=== PATIENT | female | born 2000 | race Caucasian/White ===

== ENCOUNTER 2019-02-11 01:33 | Inpatient (IN) ==
[2019-02-11] MEDS ORDERED: D5 1/2 NS 1000 ML 1,000 ML IV SCH ×2 (01:52→03:00)
[2019-02-11] MEDS ORDERED: D5 1/2 NS 1000 ML 1,000 ML ONE (01:52)
[2019-02-11 01:56] LABS: AMNISURE ROM TEST THERE IS A RUPTURE (NO RUPTURE)
[2019-02-11 02:10] VITALS: BMI 46.3
[2019-02-11] MEDS ORDERED: ANCEF VIAL 1 GRAM IVP ONE (02:40)
[2019-02-11] MEDS ORDERED: DILAUDID INJ ONE (02:57)
[2019-02-11] MEDS ORDERED: ANCEF 1 GRAM IV PREMIX* 1 G/50 ML BAG IV ONE (03:06)
[2019-02-11] MEDS ORDERED: DILAUDID INJ IVP PRN (03:07)
[2019-02-11] MEDS ORDERED: ZOFRAN INJ 4 MG VIAL IVP PRN ×2 (03:07→05:20)
[2019-02-11] MEDS ORDERED: PHENERGAN INJ 25 MG IM PRN (03:07)
[2019-02-11] MEDS ORDERED: REGLAN INJ 10 MG VIAL IVP PRN ×2 (03:07→05:20)
[2019-02-11] MEDS ORDERED: BENADRYL INJ 50 MG VIAL IVP PRN ×2 (03:07→05:20)
[2019-02-11] MEDS ORDERED: LR 1000 ML IV 1,000 ML ONE (04:04)
[2019-02-11] MEDS ORDERED: D5 1/2 NS 1000 ML 1,000 ML with PITOCIN 20 UNITS IV SCH ×2 (05:20)
[2019-02-11] MEDS ORDERED: ADACEL or BOOSTRIX TDaP VACCINE IM ONE (05:20)
[2019-02-11] MEDS ORDERED: PERCOCET TAB 5/325 MG PO PRN (05:20)
[2019-02-11] MEDS ORDERED: MYLICON TAB 80 MG CHEW PO PRN (05:20)
[2019-02-11] MEDS ORDERED: NARCAN INJ IVP PRN (05:20)
[2019-02-11 05:35] LABS: ALANINE AMINOTRANSFERASE 14 Units/L (12-78); ALBUMIN 2.2 g/dL (3.4-5.0); ALKALINE PHOSPHATASE 121 Units/L (46-116); ASPARTATE AMINO TRANSFERASE 11 Units/L (15-37); BLOOD UREA NITROGEN 12 mg/dL (7-18); CALCIUM 8.7 mg/dL (8.5-10.1); CHLORIDE 105 mmol/L (98-107); COR CA(FOR HYPOALB) 10.1 mg/dL (8.5-10.1); CREATININE 0.83 mg/dL (0.55-1.02); SODIUM 139 mmol/L (136-145); TOTAL PROTEIN 5.9 g/dL (6.4-8.2); eGFR NON BLACK RACES > 60 (>60)
[2019-02-11] MEDS: ZANTAC PO SCH ×2 (07:59→20:02)
[2019-02-11] MEDS: PRENATAL PLUS PO SCH (07:59)
[2019-02-11] MEDS: TORADOL 30 MG VIAL IVP PRN ×3 (08:10→19:54)
[2019-02-12] MEDS: TORADOL 30 MG VIAL IVP PRN (02:11)
[2019-02-12 05:33] LABS: HEMATOCRIT 28.5 % (36.0-47.0); HEMOGLOBIN 9.6 g/dL (12.0-16.0)
[2019-02-12] MEDS: PERCOCET TAB 5/325 MG PO PRN ×4 (06:37→21:09)
[2019-02-12] MEDS: COLACE CAP 100 MG PO SCH ×2 (07:59→21:09)
[2019-02-12] MEDS: ZANTAC PO SCH ×2 (07:59→21:09)
[2019-02-12] MEDS: PRENATAL PLUS PO SCH (07:59)
[2019-02-12] MEDS: FERROUS GLUCONATE PO SCH ×2 (07:59→16:36)
[2019-02-12] MEDS: MOTRIN TAB 800 MG PO PRN ×2 (10:03→18:18)
[2019-02-12] MEDS: BACTROBAN CREAM TOP SCH ×2 (14:12→21:10)
[2019-02-13] MEDS: PERCOCET TAB 5/325 MG PO PRN ×3 (01:22→10:43)
[2019-02-13] MEDS: MOTRIN TAB 800 MG PO PRN (04:26)
[2019-02-13] MEDS: BACTROBAN CREAM TOP SCH (05:30)
[2019-02-13] MEDS: FERROUS GLUCONATE PO SCH (06:01)
[2019-02-13] MEDS ORDERED: DEPO-PROVERA CONTRACEPTIVE INJ IM ONE ×2 (07:59→10:25)
[2019-02-13] MEDS: COLACE CAP 100 MG PO SCH (10:33)
[2019-02-13] MEDS: ZANTAC PO SCH (10:33)
[2019-02-13] MEDS: PRENATAL PLUS PO SCH (11:48)
[2019-02-13 12:08] VITALS: BP 130/86
== END 2019-02-13 13:20 | disposition home or self-care (01) | DRG 787 ==
LOC: ER 01:36 → LD 02:48 → MED/SURG 05:20
PROVIDERS: ADMIT Specialist; ATTEND Specialist
DX: D50.8 Other iron deficiency anemias; O36.0930 Maternal care for other rhesus isoimmunization, third trimester, not applicable or unspecified; Z3A.37 37 weeks gestation of pregnancy; O99.013 Anemia complicating pregnancy, third trimester; O99.613 Diseases of the digestive system complicating pregnancy, third trimester; Z37.0 Single live birth
CPT/HCPCS: 36415; 80053; 84112; 85014; 85018; 86592; 86850; 86900; 86901; 96365; 96367; 96374; 99284; A4216; A4222; S0197; J0690; J1170; J1200; J1885; J2405; J3490; J7120; S5010

== ENCOUNTER 2025-04-05 10:38 | Inpatient (IN) ==
[2025-04-05] MEDS ORDERED: REGLAN INJ 10 MG VIAL IVP PRN ×2 (11:04→16:59)
[2025-04-05] MEDS: ANCEF VIAL 1 GRAM IVP ONE (11:04)
[2025-04-05] MEDS: PITOCIN IVP ONE (11:04)
[2025-04-05] MEDS ORDERED: ZOFRAN INJ 4 MG VIAL IVP PRN ×3 (11:04→16:59)
[2025-04-05] MEDS ORDERED: NUBAIN INJ 20 MG AMP IVP PRN (11:04)
[2025-04-05] MEDS: LR 1,000 ML IV 1,000 ML IV ONE ×3 (11:14→13:43)
[2025-04-05 11:40] LABS: EOSINOPHILS # (AUTO) 0.2 x10^3/uL (0.0-0.2); EOSINOPHILS % (AUTO) 1.6 % (0.9-2.9); LYMPHOCYTES # (AUTO) 3.2 X10^3/uL (1.3-2.9)
[2025-04-05] MEDS: NOZIN NASAL SANITIZER TP ONE (11:42)
[2025-04-05 11:45] LABS: BASOPHILS # (AUTO) 0.2 X10^3/uL (0.0-0.1); BASOPHILS % (AUTO) 1.2 % (0.2-1.0); LYMPHOCYTES % (AUTO) 23.6 % (21.0-51.0); MEAN CORPUSCULAR HEMOGLOBIN 25.2 pg (27.0-34.0); MEAN CORPUSCULAR HGB CONC 32.4 g/dL (33.0-35.0); MEAN CORPUSCULAR VOLUME 77.9 fL (80.0-100.0); MEAN PLATELET VOLUME 7.5 fL (7.4-11.0); MONOCYTES # (AUTO) 0.9 x10^3/uL (0.3-0.8); NEUTROPHILS % (AUTO) 66.6 % (42.0-75.0); PLATELET COUNT 358 X10^3/uL (150.0-450.0); RED BLOOD COUNT 3.97 X10^6/uL (3.5-5.4); WHITE BLOOD COUNT 13.5 X10^3/uL (3.6-10.0)
[2025-04-05 11:46] LABS: BLOOD UREA NITROGEN 13 mg/dL (7-18); CALCIUM 9.2 mg/dL (8.5-10.1); CARBON DIOXIDE 24.4 mmol/L (21-32); CHLORIDE 103 mmol/L (98-107); CREATININE 0.71 mg/dL (0.55-1.02); GLUCOSE 86 mg/dL (65-99); POTASSIUM 3.8 mmol/L (3.5-5.1); SODIUM 135 mmol/L (136-145); eGFR NON BLACK RACES > 60 (>60)
[2025-04-05 11:57] LABS: BAND NEUTROPHILS % 1 % (0-10)
[2025-04-05 11:58] LABS: ANISOCYTOSIS SLIGHT; HYPOCHROMASIA SLIGHT; MICROCYTOSIS SLIGHT; PLATELET MORPHOLOGY COMMENT NORMAL (NORMAL)
[2025-04-05] MEDS: ZOFRAN INJ 4 MG VIAL ONE ×2 (12:08→12:11)
[2025-04-05] MEDS: REGLAN INJ 10 MG VIAL ONE (12:08)
[2025-04-05] MEDS: PEPCID 20 MG VIAL ONE (12:09)
[2025-04-05] MEDS: PRECEDEX INJ VIAL ONE (12:10)
[2025-04-05] MEDS: XYLOCAINE 1 % (PLAIN) ONE (12:10)
[2025-04-05] MEDS: MARCAINE SPINAL ONE (12:11)
[2025-04-05] MEDS: TORADOL 30 MG VIAL ONE (12:11)
[2025-04-05] MEDS ORDERED: TORADOL 30 MG VIAL ONE (12:30)
[2025-04-05] MEDS ORDERED: REGLAN INJ 10 MG VIAL ONE (12:30)
[2025-04-05] MEDS ORDERED: ZOFRAN INJ 4 MG VIAL ONE (12:30)
[2025-04-05] MEDS ORDERED: PEPCID 20 MG VIAL ONE (12:30)
[2025-04-05] MEDS ORDERED: EPHEDRINE SULFATE INJ ONE (12:30)
[2025-04-05] MEDS: ANCEF VIAL 1 GRAM ONE (13:05)
[2025-04-05] MEDS: NS 100 ML IV 100 ML ONE (13:05)
[2025-04-05] MEDS: OFIRMEV IV 1000 MG VIAL 1,000 MG/100 ML VIAL IV ONE (13:37)
[2025-04-05 13:54] LABS: BILIRUBIN,URINE NEGATIVE (NEGATIVE); BLOOD/HEMOGLOBIN,URINE 1+ (NEGATIVE); GLUCOSE, URINE NEGATIVE (NEGATIVE); KETONES,URINE NEGATIVE (NEGATIVE); LEUKOCYTE ESTERASE ,URINE 1+ (NEGATIVE); NITRITES,URINE POSITIVE (NEGATIVE); PROTEIN,URINE 2+ (NEGATIVE); UROBILINOGEN,URINE NORMAL (NORMAL)
[2025-04-05] MEDS ORDERED: BARHEMSYS INJ IVP PRN (14:07)
[2025-04-05] MEDS ORDERED: DILAUDID INJ IVP PRN (14:07)
[2025-04-05] MEDS ORDERED: BENADRYL INJ 50 MG VIAL IVP PRN ×2 (14:07→16:59)
[2025-04-05 14:10] LABS: APPEARANCE,URINE SLIGHTLY HAZY (CLEAR); COLOR,URINE YELLOW (YELLOW)
[2025-04-05 14:11] LABS: BACTERIA,URINE 1+ /HPF (NEGATIVE); RBC,URINE NONE SEEN /HPF (0-3); SQUAMOUS EPITHELIAL CELL,UR RARE /HPF (NEGATIVE)
[2025-04-05] MEDS: EPHEDRINE SULFATE INJ ONE (14:32)
[2025-04-05] MEDS ORDERED: NARCAN INJ IVP PRN (16:59)
[2025-04-05] MEDS ORDERED: MOTRIN TAB 800 MG PO PRN (16:59)
[2025-04-05] MEDS ORDERED: OFIRMEV IV 1000 MG VIAL 1,000 MG/100 ML VIAL IV PRN (16:59)
[2025-04-05] MEDS ORDERED: HYPERRHO S/D (or RHOGAM) IM PRN (16:59)
[2025-04-05] MEDS ORDERED: MYLICON TAB 80 MG CHEW PO PRN (16:59)
--- NOTE | 2025-04-05 17:09 | OR.IMMED ---
IMMEDIATE POST-OP NOTE Immediate Post-Op Note Pre-Op Diagnosis: Previous section for elective repeat Procedure: Elective repeat section Description of Procedure: Delivery of live with reassuring apgars via Pfannensteil incision. Surgeon/Hotel Custodian: Acacia Xavier MD Findings: Live with reassuring apgars Specimens Removed: Placenta Estimated Blood Loss: 600 cc Complications: None Discharge Progress Notes: Transferred to recovery in stable condition Post Hospital Plans and Medications: Post operative IV Tylenol, with Roxicodone until taking PO, then Ibuprofen and Percocet
[2025-04-05] MEDS: D5 1/2 NS 1,000 ML 1,000 ML with PITOCIN 20 UNITS IV SCH (17:12)
[2025-04-05] MEDS: OXYTOCIN 20 UNIT/1,000 ML-NS 20 UNIT/1,000 ML PLAST..BAG IV SCH (17:12)
[2025-04-05] MEDS: ADACEL or BOOSTRIX TDaP VACCINE IM ONE (17:14)
[2025-04-05] MEDS: TORADOL 30 MG VIAL IVP PRN (19:33)
[2025-04-05] MEDS: LR 1,000 ML IV 1,000 ML IV SCH (21:43)
[2025-04-06] MEDS: ROXICODONE TAB 5 MG PO PRN (00:13)
[2025-04-06 05:07] LABS: HEMATOCRIT 29.7 % (36.0-47.0); HEMOGLOBIN 9.7 g/dL (12.0-16.0)
[2025-04-06] MEDS: PRENATAL PLUS PO SCH (07:57)
--- NOTE | 2025-04-06 11:02 | NOTE.PROBC ---
Progress Note OB-C/S Date Date of Exam: 04/06/25 Subjective Data Subjective: Postoperative day #1 status post section without complaints. Vaginal bleeding seems about normal. She had fundal massage 1 time according to patient and was then asked to massage her own fundus. Has been up to the bathroom after [place] was removed without difficulty. Reports no flatus or bowel movement, but has an appetite. States that due to her pain level she just recently was able to fall asleep. Objective Data 04/06/25 04:37 04/05/25 11:22 Objective Data: Overweight female in no apparent distress. Lungs clear to auscultation bilaterally, heart regular rate and rhythm. Abdomen soft nontender. Fundus at umbilicus. Extremities 2+ edema. Patient was out of bed so sequential compression devices had been removed. Assessment Assessment: Postoperative day #1 status post elective repeat section doing well. Chronic hypertension. Anemia status post surgery. Patient declined bilateral tubal ligation so consider Depo-Provera at discharge for contraception.
[2025-04-06] MEDS: KEFLEX CAP 500 MG PO SCH (12:00)
[2025-04-06] MEDS: NORMODYNE TAB 100 MG PO SCH (13:52)
[2025-04-06] MEDS: PERCOCET TAB 5/325 MG PO PRN (17:21)
[2025-04-06] MEDS: MOTRIN TAB 800 MG PO PRN (19:24)
[2025-04-07] MEDS: HYDROCHLOROTHIAZIDE 12.5 MG CAP PO SCH (08:19)
[2025-04-07] MEDS: PROCARDIA XL 24-HR PO SCH (09:40)
--- NOTE | 2025-04-07 14:55 | NOTE.PROBC ---
Progress Note OB-C/S Date Date of Exam: 04/07/25 Subjective Data Subjective: Patient is without complaints. Thinks her bleeding is normal. No chest complaints, no shortness of breath. Is passing gas but has not had a bowel movement. Took a shower last evening and still has a bandage intact. Will not be ready to go home until tomorrow morning when she will have a car seat available. Objective Data 04/06/25 04:37 04/05/25 11:22 Objective Data: Overweight female in no apparent distress. Lungs clear to auscultation bilaterally, heart regular rate and rhythm. Abdomen soft nontender, fundus near umbilicus. Abdomen is obese. Dressing over incision is dry and intact. In the extremities there is 1-2+ pitting and nonpitting edema. Assessment Assessment: Postoperative day #2 status post elective repeat section. Patient has postoperative anemia and is currently asymptomatic. Plan (1) Delivery by section: Plan: Patient may go home after flatus or bowel movement, and also may stay until tomorrow morning if desired. Prescriptions were discussed. Has been changed to Procardia 30 XL daily with hydrochlorothiazide. She has ibuprofen and Percocet for pain control, and she was treated for urinary tract infection with Keflex. 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
[2025-04-07] MEDS: DEPO-PROVERA CONTRACEPTIVE INJ IM ONE (16:13)
[2025-04-08 07:56] VITALS: BP 146/81; PULSE 101; TEMP 98.6; O2SAT 98
[2025-04-08 08:48] VITALS: RESP 20
[2025-04-08] MEDS: ADACEL or BOOSTRIX TDaP VACCINE IM ONE (12:50)
--- NOTE | 2025-04-11 12:33 | W.DIS.FURT ---
Summary of Discharge Discharge Summary of Date Date of Exam: 04/08/25 Admission Date Date of Admission: 04/05/25 Admission Diagnosis Hospital Course: 24-year-old patient, 2 para 1 who was admitted for elective repeat section due to chronic hypertension at 37 weeks of gestation. Patient's was complicated by insufficient care, treatment for syphilis during this , polysubstance abuse including drug screen positive for amphetamines and THC and using a vape, Chronic hypertension, Body mass index of greater than 40, and previous section. She had an uncomplicated section, and progressed well on day #1 and 2. And day #3 the patient was passing gas, and had her travel arrangements made and had a car seat available. She was discharged to home in self-care with a follow-up scheduled in 1 week for incision check. A prescription was sent to her pharmacy. Vital Signs: Vital Signs (72 hours) 04/05/25 11:08 04/05/25 11:08 04/05/25 11:13 Temperature Pulse Rate 90 87 100 H Pulse Rate [Left] Respiratory Rate Blood Pressure 131/81 Blood Pressure [Left Arm] O2 Sat by Pulse Oximetry 98 98 Oxygen Delivery Method 04/05/25 11:14 04/05/25 11:18 04/05/25 11:23 Temperature 97.3 F L Pulse Rate 90 88 Pulse Rate [Left] Respiratory Rate 18 Blood Pressure 131/84 Blood Pressure [Left Arm] O2 Sat by Pulse Oximetry 97 99 Oxygen Delivery Method 04/05/25 11:23 04/05/25 11:28 04/05/25 11:33 Temperature Pulse Rate 93 H 86 Pulse Rate [Left] Respiratory Rate Blood Pressure Blood Pressure [Left Arm] O2 Sat by Pulse Oximetry 98 99 Oxygen Delivery Method Room Air 04/05/25 11:38 04/05/25 11:38 04/05/25 11:43 Temperature Pulse Rate 81 83 88 Pulse Rate [Left] Respiratory Rate Blood Pressure 133/71 Blood Pressure [Left Arm] O2 Sat by Pulse Oximetry 98 98 Oxygen Delivery Method 04/05/25 11:48 04/05/25 11:53 04/05/25 11:58 Temperature Pulse Rate 85 84 86 Pulse Rate [Left] Respiratory Rate Blood Pressure 137/69 Blood Pressure [Left Arm] O2 Sat by Pulse Oximetry 99 98 97 Oxygen Delivery Method 04/05/25 12:03 04/05/25 12:08 04/05/25 12:08 Temperature Pulse Rate 83 85 81 Pulse Rate [Left] Respiratory Rate Blood Pressure 123/65 Blood Pressure [Left Arm] O2 Sat by Pulse Oximetry 98 98 Oxygen Delivery Method 04/05/25 12:13 04/05/25 12:18 04/05/25 12:23 Temperature Pulse Rate 80 81 88 Pulse Rate [Left] Respiratory Rate Blood Pressure Blood Pressure [Left Arm] O2 Sat by Pulse Oximetry 98 99 98 Oxygen Delivery Method 04/05/25 12:24 04/05/25 12:28 04/05/25 12:33 Temperature Pulse Rate 82 74 88 Pulse Rate [Left] Respiratory Rate Blood Pressure 97/54 Blood Pressure [Left Arm] O2 Sat by Pulse Oximetry 97 99 Oxygen Delivery Method 04/05/25 12:38 04/05/25 12:38 04/05/25 12:43 Temperature Pulse Rate 74 73 76 Pulse Rate [Left] Respiratory Rate Blood Pressure 100/56 Blood Pressure [Left Arm] O2 Sat by Pulse Oximetry 98 98 Oxygen Delivery Method 04/05/25 12:48 04/05/25 12:53 04/05/25 12:58 Temperature Pulse Rate 80 84 82 Pulse Rate [Left] Respiratory Rate Blood Pressure 103/56 Blood Pressure [Left Arm] O2 Sat by Pulse Oximetry 98 99 99 Oxygen Delivery Method 04/05/25 14:48 04/05/25 14:53 04/05/25 14:58 Temperature 97 F L Pulse Rate 68 67 73 Pulse Rate [Left] Respiratory Rate 18 18 18 Blood Pressure 142/61 128/56 124/57 Blood Pressure [Left Arm] O2 Sat by Pulse Oximetry 100 100 100 Oxygen Delivery Method Room Air Room Air Room Air 04/05/25 15:03 04/05/25 15:08 04/05/25 15:13 Temperature 97 F L Pulse Rate 63 63 61 Pulse Rate [Left] Respiratory Rate 18 18 18 Blood Pressure 124/56 127/60 119/57 Blood Pressure [Left Arm] O2 Sat by Pulse Oximetry 99 99 98 Oxygen Delivery Method Room Air Room Air Room Air 04/05/25 15:15 04/05/25 15:18 04/05/25 15:30 Temperature 97 F L 97.6 F Pulse Rate 62 Pulse Rate [Left] 64 Respiratory Rate 18 20 Blood Pressure 117/56 Blood Pressure [Left Arm] 115/65 O2 Sat by Pulse Oximetry 99 100 Oxygen Delivery Method Room Air Room Air Room Air 04/05/25 15:45 04/05/25 16:00 04/05/25 16:15 Temperature 97.4 F L 97.2 F L 97.2 F L Pulse Rate Pulse Rate [Left] 86 69 75 Respiratory Rate 18 18 18 Blood Pressure Blood Pressure [Left Arm] 109/58 139/64 120/64 O2 Sat by Pulse Oximetry 100 100 99 Oxygen Delivery Method Room Air Room Air Room Air 04/05/25 16:30 04/05/25 17:30 04/05/25 18:28 Temperature 97.1 F L 98.2 F 98.1 F Pulse Rate 79 Pulse Rate [Left] 83 87 Respiratory Rate 18 18 18 Blood Pressure 111/56 Blood Pressure [Left Arm] 123/61 123/69 O2 Sat by Pulse Oximetry 97 99 99 Oxygen Delivery Method Room Air Room Air 04/05/25 19:00 04/05/25 19:30 04/05/25 19:33 Temperature 97.5 F L Pulse Rate 82 Pulse Rate [Left] Respiratory Rate 18 18 Blood Pressure 157/89 Blood Pressure [Left Arm] O2 Sat by Pulse Oximetry Oxygen Delivery Method Room Air 04/05/25 20:03 04/05/25 20:30 04/06/25 00:00 Temperature 98 F 98.1 F Pulse Rate 86 Pulse Rate [Left] 83 Respiratory Rate 19 20 16 Blood Pressure 138/59 Blood Pressure [Left Arm] 142/86 O2 Sat by Pulse Oximetry 98 Oxygen Delivery Method Room Air 04/06/25 00:13 04/06/25 01:13 04/06/25 04:00 Temperature 97.9 F Pulse Rate Pulse Rate [Left] 84 Respiratory Rate 20 20 16 Blood Pressure Blood Pressure [Left Arm] 136/79 O2 Sat by Pulse Oximetry 98 Oxygen Delivery Method Room Air 04/06/25 04:46 04/06/25 05:16 04/06/25 07:00 Temperature Pulse Rate Pulse Rate [Left] Respiratory Rate 20 18 Blood Pressure Blood Pressure [Left Arm] O2 Sat by Pulse Oximetry Oxygen Delivery Method Room Air 04/06/25 07:56 04/06/25 08:00 04/06/25 08:56 Temperature 97.9 F Pulse Rate Pulse Rate [Left] 90 Respiratory Rate 18 19 18 Blood Pressure Blood Pressure [Left Arm] 135/92 O2 Sat by Pulse Oximetry 99 Oxygen Delivery Method Room Air 04/06/25 11:59 04/06/25 12:00 04/06/25 12:29 Temperature 97.9 F Pulse Rate Pulse Rate [Left] 102 H Respiratory Rate 19 19 18 Blood Pressure Blood Pressure [Left Arm] 141/106 O2 Sat by Pulse Oximetry 99 Oxygen Delivery Method Room Air 04/06/25 16:00 04/06/25 17:21 04/06/25 18:21 Temperature 98.6 F Pulse Rate Pulse Rate [Left] 92 H Respiratory Rate 19 19 18 Blood Pressure Blood Pressure [Left Arm] 147/82 O2 Sat by Pulse Oximetry 99 Oxygen Delivery Method Room Air 04/06/25 19:00 04/06/25 19:24 04/06/25 20:00 Temperature 98.3 F Pulse Rate Pulse Rate [Left] 88 Respiratory Rate 18 18 Blood Pressure Blood Pressure [Left Arm] 130/76 O2 Sat by Pulse Oximetry 99 Oxygen Delivery Method Room Air Room Air 04/06/25 20:24 04/06/25 21:30 04/06/25 22:30 Temperature Pulse Rate Pulse Rate [Left] Respiratory Rate 19 18 17 Blood Pressure Blood Pressure [Left Arm] O2 Sat by Pulse Oximetry Oxygen Delivery Method 04/07/25 00:00 04/07/25 04:00 04/07/25 04:02 Temperature 98.1 F 98.2 F Pulse Rate Pulse Rate [Left] 78 81 Respiratory Rate 18 20 19 Blood Pressure Blood Pressure [Left Arm] 125/68 154/81 O2 Sat by Pulse Oximetry 100 98 Oxygen Delivery Method Room Air Room Air 04/07/25 05:02 04/07/25 07:00 04/07/25 08:00 Temperature 98.1 F Pulse Rate Pulse Rate [Left] 77 Respiratory Rate 16 19 Blood Pressure Blood Pressure [Left Arm] 160/92 O2 Sat by Pulse Oximetry 98 Oxygen Delivery Method Room Air Room Air 04/07/25 08:18 04/07/25 09:18 04/07/25 12:00 Temperature 97.7 F Pulse Rate Pulse Rate [Left] 84 Respiratory Rate 16 19 18 Blood Pressure Blood Pressure [Left Arm] 154/79 O2 Sat by Pulse Oximetry 98 Oxygen Delivery Method Room Air 04/07/25 13:29 04/07/25 14:29 04/07/25 16:00 Temperature 98.2 F Pulse Rate Pulse Rate [Left] 95 H Respiratory Rate 16 18 18 Blood Pressure Blood Pressure [Left Arm] 143/85 O2 Sat by Pulse Oximetry 96 Oxygen Delivery Method Room Air 04/07/25 17:14 04/07/25 18:14 04/07/25 19:00 Temperature Pulse Rate Pulse Rate [Left] Respiratory Rate 16 18 Blood Pressure Blood Pressure [Left Arm] O2 Sat by Pulse Oximetry Oxygen Delivery Method Room Air 04/07/25 19:47 04/07/25 20:11 04/07/25 21:11 Temperature 98.2 F Pulse Rate Pulse Rate [Left] 89 Respiratory Rate 20 20 20 Blood Pressure Blood Pressure [Left Arm] 150/80 O2 Sat by Pulse Oximetry 96 Oxygen Delivery Method Room Air 04/08/25 00:00 04/08/25 04:00 04/08/25 05:11 Temperature 97.9 F 97.9 F Pulse Rate Pulse Rate [Left] 96 H 94 H Respiratory Rate 21 20 20 Blood Pressure Blood Pressure [Left Arm] 161/79 162/74 O2 Sat by Pulse Oximetry 97 95 Oxygen Delivery Method Room Air Room Air Labs: Laboratory Last Values WBC 13.5 X10^3/uL (3.6-10.0) H 04/05/25 11:22 RBC 3.97 X10^6/uL (3.5-5.4) 04/05/25 11:22 Hgb 9.7 g/dL (12.0-16.0) L 04/06/25 04:37 Hct 29.7 % (36.0-47.0) L 04/06/25 04:37 MCV 77.9 fL (80.0-100.0) L 04/05/25 11:22 MCH 25.2 pg (27.0-34.0) L 04/05/25 11:22 MCHC 32.4 g/dL (33.0-35.0) L 04/05/25 11:22 RDW 19.0 % (11.6-16.5) H 04/05/25 11:22 Plt Count 358 X10^3/uL (150.0-450.0) 04/05/25 11:22 Plt Count Comment Adequate (ADEQUATE) 04/05/25 11:22 MPV 7.5 fL (7.4-11.0) 04/05/25 11:22 Neut % (Auto) 66.6 % (42.0-75.0) 04/05/25 11:22 Lymph % (Auto) 23.6 % (21.0-51.0) 04/05/25 11:22 [place] % (Auto) 7.0 % (0.0-13.0) 04/05/25 11:22 Eos % (Auto) 1.6 % (0.9-2.9) 04/05/25 11:22 Baso % (Auto) 1.2 % (0.2-1.0) H 04/05/25 11:22 Neut # (Auto) 9.0 x10^3/uL (2.2-4.8) H 04/05/25 11:22 Lymph # (Auto) 3.2 X10^3/uL (1.3-2.9) H 04/05/25 11:22 [place] # (Auto) 0.9 x10^3/uL (0.3-0.8) H 04/05/25 11:22 Eos # (Auto) 0.2 x10^3/uL (0.0-0.2) 04/05/25 11:22 Baso # (Auto) 0.2 X10^3/uL (0.0-0.1) H 04/05/25 11:22 Absolute Nucleated RBC 0.2 /100WBC 04/05/25 11:22 Total Counted 100 04/05/25 11:22 Neutrophils % (Manual) 70 % (39-76) 04/05/25 11:22 Band Neutrophils % 1 % (0-10) 04/05/25 11:22 Lymphocytes % (Manual) 23 % (13-43) 04/05/25 11:22 Monocytes % (Manual) 5 % (4-9) 04/05/25 11:22 Eosinophils % (Manual) 1 % (0-6) 04/05/25 11:22 Plt Morphology Comment Normal (NORMAL) 04/05/25 11:22 RBC Morphology Abnormal (NORMAL) A 04/05/25 11:22 Hypochromasia Slight A 04/05/25 11:22 Anisocytosis Slight A 04/05/25 11:22 Microcytosis Slight A 04/05/25 11:22 Sodium 135 mmol/L (136-145) L 04/05/25 11:22 Corrected Sodium TNP 04/05/25 11:22 Potassium 3.8 mmol/L (3.5-5.1) 04/05/25 11:22 Chloride 103 mmol/L (98-107) 04/05/25 11:22 Carbon Dioxide 24.4 mmol/L (21-32) 04/05/25 11:22 BUN 13 mg/dL (7-18) 04/05/25 11:22 Creatinine 0.71 mg/dL (0.55-1.02) 04/05/25 11:22 Est GFR (MDRD) Af Amer > 60 (>60) 04/05/25 11:22 Est GFR (MDRD) Non-Af > 60 (>60) 04/05/25 11:22 Glucose 86 mg/dL (65-99) 04/05/25 11:22 Calcium 9.2 mg/dL (8.5-10.1) 04/05/25 11:22 Specimen Type Catherized urine 04/05/25 13:30 Urine Color Yellow (YELLOW) 04/05/25 13:30 Urine Appearance Slightly hazy (CLEAR) 04/05/25 13:30 Urine pH 7.0 (5.0 - 8.0) 04/05/25 13:30 Ur Specific [place] 1.010 (1.000-1.030) 04/05/25 13:30 Urine Protein 2+ (NEGATIVE) 04/05/25 13:30 Urine Glucose (UA) Negative (NEGATIVE) 04/05/25 13:30 Urine Ketones Negative (NEGATIVE) 04/05/25 13:30 Urine Blood 1+ (NEGATIVE) 04/05/25 13:30 Urine Nitrite Positive (NEGATIVE) 04/05/25 13:30 Urine Bilirubin Negative (NEGATIVE) 04/05/25 13:30 Urine Urobilinogen Normal (NORMAL) 04/05/25 13:30 Ur Leukocyte Esterase 1+ (NEGATIVE) 04/05/25 13:30 Urine RBC None seen /HPF (0-3) 04/05/25 13:30 Urine WBC 5-10 /HPF (0-5) A 04/05/25 13:30 Ur Squamous Epith Cells Rare /HPF (NEGATIVE) 04/05/25 13:30 Urine Bacteria 1+ /HPF (NEGATIVE) 04/05/25 13:30 Ur Culture Indicated? Yes/culture set up 04/05/25 13:30 Urine Opiates Screen Negative (NEG=<300) 04/05/25 13:30 Urine Methadone Screen Negative (NEG=<300) 04/05/25 13:30 Ur Barbiturates Screen Negative (NEG=<200) 04/05/25 13:30 Ur Phencyclidine Scrn Negative (NEG=<25) 04/05/25 13:30 Ur Amphetamines Screen Negative (NEG=<1000) 04/05/25 13:30 U Benzodiazepines Scrn Negative (NEG=<200) 04/05/25 13:30 Urine Cocaine Screen Negative (NEG=<300) 04/05/25 13:30 U Marijuana (THC) Screen Positive (NEG=<50) A 04/05/25 13:30 RPR Reactive (NONREACTIVE) A 04/05/25 11:22 HIV 1&2 Antibody Non reactive (NONREACTIVE) 04/05/25 11:22 HIV P24 Antigen Non reactive (NONREACTIVE) 04/05/25 11:22 Blood Type A POSITIVE 04/05/25 11:22 Antibody Screen Negative 04/05/25 11:22 Reason For Visit: C SECTION Discharge Diagnosis All Active Problems (Updated 03/29/25 @ 18:06 by Allison Madrid) Delivery by section (Acute) Substance abuse affecting , antepartum (Acute) Previous section complicating , antepartum condition or complication (Acute) Syphilis affecting , antepartum (Acute) Maternal obesity affecting , antepartum (Acute) Hepatitis C carrier (Acute) Chronic hypertension affecting (Acute) Third trimester (Acute) UTI (urinary tract infection) in in third trimester (Acute) Plan of Treatment: Continue with present treatment and follow up plan. Pt is to keep follow up appointment as instructed and take medications as ordered. Discharge Medications Discharge Medications: No Known Allergies Allergy (Verified 03/31/25 13:30) New Prescriptions cephalexin 500 mg capsule 500 mg PO QID #28 caps 04/07/25 [Rx] hydrochlorothiazide 12.5 mg capsule 12.5 mg PO DAILY Hypertension #30 caps 0 04/07/25 [Rx] ibuprofen 800 mg tablet 800 mg PO Q8H PRN #30 tabs 04/07/25 [Rx] multivit-minerals no.73-iron fumarate 106 mg-folic acid 1 mg capsule (Hemocyte- Plus) 1 cap PO QDAY #30 caps 04/07/25 [Rx] nifedipine 30 mg tablet,extended release 24 hr 30 mg PO DAILY #30 tabs 04/07/25 [Rx] oxycodone-acetaminophen 5 mg-325 mg tablet 1 tab PO Q4H PRN #28 tabs 04/07/25 [Rx] vits no.130-ferrous fum 27 mg iron-folic acid 800 mcg tablet ( Vitamin) 1 tab PO DAILY #90 tabs 04/07/25 [Rx] Discharge Disposition Assessment: No distress noted. Discharge Plan Discharge Plan Hospital Course: 24-year-old patient, 2 para 1 who was admitted for elective repeat abbie arean section due to chronic hypertension at 37 weeks of gestation. Patient's was complicated by insufficient care, treatment for syphilis during this , polysubstance abuse including drug screen positive for amphetamines and THC and using a vape, Chronic hypertension, Body mass index of greater than 40, and previous section. She had an uncomplicated section, and progressed well on day #1 and 2. And day #3 the patient was passing gas, and had her travel arrangements made and had a car seat available. She was discharged to home in self-care with a follow- up scheduled in 1 week for incision check. A prescription was sent to her pharmacy. Patient Disposition: 01 HOME, SELF-CARE Condition: Stable Health Concerns: Post Hospitalization: new medications and changes needed to prevent readmission or further decline. Pt educated and given instructions on all concerns. Care Plan Goals: Problem: Potential for Infection Goal: Mother will remain free from infection. Verbalizes preventable risk. Instructions: Follow provided instructions. Follow up with primary physician as directed. Contact primary care physician or report to the closest Emergency Room if condition worsens. Plan of Treatment: Continue with present treatment and follow up plan. Pt is to keep follow up appointment as instructed and take medications as ordered. Assessment: No distress noted. Prescriptions: New ibuprofen 800 mg Tablet 800 mg PO Q8H PRNQty: 30 1RF oxycodone-acetaminophen 5-325 mg Tablet 1 tab PO Q4H MDD 4 PRNQty: 28 0RF cephalexin 500 mg Capsule 500 mg PO QID Qty: 28 0RF hydrochlorothiazide 12.5 mg Capsule 12.5 mg PO DAILY Qty: 30 0RF Vitamin 27 mg iron- 800 mcg Tablet 1 tab PO DAILY Qty: 90 1RF Hemocyte-Plus 106 mg iron- 1 mg capsule 1 cap PO QDAY Qty: 30 3RF nifedipine 30 mg Tablet Extended Release 24hr 30 mg PO DAILY Qty: 30 3RF No Action labetalol 100 mg tablet 100 mg PO BID pantoprazole 40 mg tablet,delayed release (DR/EC) 40 mg PO QDAY ondansetron HCl 4 mg tablet 4 mg PO Q8H Follow ups/Referrals Follow ups/Referrals: Acacia Xavier MD [Primary Care Provider, Obsetrics/Gynecology] - 04/12/25 2:00 pm Instructions Instructions: Smoking Tobacco Information, Adult, Baby Blues, and Breast Care, Problems to Watch for After , Care After Delivery Stand Alone Forms: Excuse From Work or School, Find Help Web Site, Post Hospital Follow Up Care Print Language: IRISH
== END 2025-04-08 13:20 | disposition home or self-care (01) | DRG 786 ==
LOC: LD 10:38 → MED/SURG 15:03
PROVIDERS: ADMIT Obstetrics & Gynecology; ATTEND Obstetrics & Gynecology